=== PATIENT | male | born 1990 | race Caucasian/White ===

== ENCOUNTER 2023-07-21 13:18 | Emergency (ER) | payer OTHER, SELFPAY ==
[~2023-07-21] VITALS: Ht 185.4 cm; Wt 172.7 kg
--- NOTE | 2023-07-21 14:18 | NUR ---
PT ARRIVED TO . [facility] AT BEDSIDE.
--- NOTE | 2023-07-21 14:25 | NUR ---
LAB AT BEDSIDE COLLECTING PT BLOOD.
[2023-07-21 14:52] LABS: BASOPHILS # (AUTO) 0.1 X10'3 (0-0.2); BASOPHILS % (AUTO) 0.8 % (0-1); EOSINOPHILS # (AUTO) 0.2 X10'3 (0-0.9); EOSINOPHILS % (AUTO) 3.2 % (0-6); HEMATOCRIT 42.1 % (42.0-52.0); HEMOGLOBIN 14.4 g/dl (14.0-17.9); LYMPHOCYTES # (AUTO) 1.5 X10'3 (1.1-4.8); LYMPHOCYTES % (AUTO) 21.8 % (21-51); MEAN CORPUSCULAR HEMOGLOBIN 27.9 PG (27.0-31.0); MEAN CORPUSCULAR HGB CONC 34.2 g/dL (33.0-36.5); MEAN CORPUSCULAR VOLUME 81.7 FL (78-98); MEAN PLATELET VOLUME 9.2 FL (7.4-10.4); MONOCYTES # (AUTO) 0.4 X10'3 (0-0.9); MONOCYTES % (AUTO) 5.9 % (2-12); NEUTROPHILS # (AUTO) 4.8 X10'3 (1.8-7.7); NEUTROPHILS % (AUTO) 68.3 % (42-75); PLATELET COUNT 221 X10'3 (140-440); RED BLOOD COUNT 5.16 X10'6 (4.70-6.10); RED CELL DISTRIBUTION WIDTH 14.5 % (11.5-14.5)
--- NOTE | 2023-07-21 14:54 | NUR ---
STUDENT STEVAN SERRANO AT BEDSIDE WITH HIS INSTRUCTOR ATTEMPTING IV AT THIS TIME.
[2023-07-21 15:07] LABS: ALBUMIN 3.7 G/DL (3.4-5.0); ALBUMIN/GLOBULIN RATIO 0.9 (1.1-1.5); ALKALINE PHOSPHATASE 76 IU/L (46-116); ANION GAP 8 (8-16); BILIRUBIN,TOTAL 1.1 MG/DL (0.1-1.0); BLOOD UREA NITROGEN 11 MG/DL (7-18); BUN/CREATININE RATIO 10.5 (10.0-20.0); CHLORIDE 98 MMOL/L (99-107); CREATININE 1.05 MG/DL (0.60-1.10); PRO BRAIN NATRIURETIC PEPTIDE < 30 PG/ML (0-125); SODIUM 132 MMOL/L (135-145); TOTAL CARBON DIOXIDE 25.6 MMOL/L (24-32); TOTAL PROTEIN 7.6 G/DL (6.4-8.2); eCRCL 111 ML/MIN; eGFR 80 ML/MIN
[2023-07-21 15:14] LABS: POTASSIUM 3.9 MMOL/L (3.5-5.1)
[2023-07-21] MEDS ORDERED: normal saline 1000ml 1,000 ML IV ONE (15:20)
--- NOTE | 2023-07-21 15:20 | NUR ---
PER LAB PT BG [id number]. RN NOTIFIED DR BAEZ.
[2023-07-21] MEDS ORDERED: iohexol 350MG/ML 100ml bottle IV ONE (15:27)
[2023-07-21 15:28] LABS: ALANINE AMINOTRANSFERASE 119 U/L (12-78); ASPARTATE AMINO TRANSFERASE 47 U/L (10-37)
[2023-07-21 15:30] LABS: GLUCOSE 471 MG/DL (70-104)
--- NOTE | 2023-07-21 15:44 | NUR ---
CT NOTIFIED THAT PT READY FOR CT WITH CONTRAST.
[2023-07-21] MEDS ORDERED: potassium chloride 10mEq ER tablet PO ONE (16:25)
[2023-07-21] MEDS ORDERED: insulin regular, human 10 units/0.1 ml syringe IV ONE (16:25)
[2023-07-21 16:38] LABS: BILIRUBIN,URINE NEGATIVE (Neg); CLARITY,URINE CLEAR (Clear); COLOR,URINE YELLOW (Yellow); GLUCOSE, URINE >=1000 mg/dl (Neg); KETONES,URINE 15 mg/dl (Neg); LEUKOCYTE ESTERASE ,URINE NEGATIVE (Neg); NITRITES, URINE NEGATIVE (Neg); OCCULT BLOOD,URINE NEGATIVE (Neg); PH,URINE 5.5 (4.8-8.0); PROTEIN,URINE NEGATIVE (Neg); UROBILINOGEN,URINE 0.2 E.U/dL (0.2-1.0)
[2023-07-21 16:42] LABS: UA COLLECTION TYPE CLN CATCH MIDSTREAM
[2023-07-21 16:48] LABS: BACTERIA,URINE NONE SEEN /HPF (Neg); RBC,URINE NONE SEEN /HPF (0-2); SQUAMOUS EPITHELIAL CELL,UR NONE SEEN /LPF (FEW)
[2023-07-21 16:49] LABS: WBC,URINE 0-4 /HPF (0-4)
[2023-07-21 17:29] VITALS: TEMP 98.5
[2023-07-21] MEDS ORDERED: METF-436 PO (18:21)
--- NOTE | 2023-07-21 18:30 | NUR ---
SHANIA CALLES WILL COMPLETE DISCHARGE. MAGGIE CALLES STUDENT REMOVED IVS/TIPS INTACT WITH NO COMPLICATION.
[2023-07-21 18:31] VITALS: BP 152/99; PULSE 95; RESP 16; O2SAT 97
== END 2023-07-21 18:33 | disposition home or self-care (01) ==
LOC: ER 13:19
DX: E11.65 Type 2 diabetes mellitus with hyperglycemia (principal); K76.0 Fatty (change of) liver, not elsewhere classified
CPT/HCPCS: 36415; 71045; 71275; 74177; 80053; 81001; 82948; 83880; 85025; 93005; 96374; 99285; J1815; J3490; J7030; Q9967

== ENCOUNTER 2023-07-25 16:17 | Emergency (ER) | payer OTHER ==
[~2023-07-25] VITALS: Ht 185.4 cm; Wt 170.0 kg
[~2023-07-25 16:17] MED LIST: METF-436 PO
[2023-07-25] MEDS ORDERED: ipratropium/albuterol 3ml nebule NEB ONE (17:00)
[2023-07-25] MEDS ORDERED: normal saline 1000ML IV soln IVB ONE (17:00)
[2023-07-25] MEDS ORDERED: methylPREDNISolone sod succ 125mg/2ml vial IV ONE (17:00)
[2023-07-25 18:15] VITALS: TEMP 98.5
[2023-07-25 18:32] LABS: BASOPHILS % (AUTO) 0.4 % (0-1); EOSINOPHILS # (AUTO) 0.3 X10'3 (0-0.9); HEMATOCRIT 39.3 % (42.0-52.0); HEMOGLOBIN 13.7 g/dl (14.0-17.9); LYMPHOCYTES # (AUTO) 1.2 X10'3 (1.1-4.8); LYMPHOCYTES % (AUTO) 18.7 % (21-51); MEAN CORPUSCULAR HEMOGLOBIN 28.4 PG (27.0-31.0); MEAN CORPUSCULAR VOLUME 81.1 FL (78-98); MEAN PLATELET VOLUME 8.8 FL (7.4-10.4); MONOCYTES # (AUTO) 0.4 X10'3 (0-0.9); NEUTROPHILS # (AUTO) 4.3 X10'3 (1.8-7.7); NEUTROPHILS % (AUTO) 69.9 % (42-75); PLATELET COUNT 249 X10'3 (140-440); RED BLOOD COUNT 4.84 X10'6 (4.70-6.10); RED CELL DISTRIBUTION WIDTH 14.7 % (11.5-14.5); WHITE BLOOD COUNT 6.2 X10'3 (4.5-11.0)
[2023-07-25 19:15] VITALS: BP 119/74; PULSE 106; RESP 14; O2SAT 96
== END 2023-07-25 19:17 | disposition home or self-care (01) ==
LOC: ER 16:19
DX: J45.909 Unspecified asthma, uncomplicated (principal); E11.9 Type 2 diabetes mellitus without complications; F41.9 Anxiety disorder, unspecified; F12.90 Cannabis use, unspecified, uncomplicated; Z79.84 Long term (current) use of oral hypoglycemic drugs; Z79.899 Other long term (current) drug therapy
CPT/HCPCS: 36415; 71045; 85025; 93005; 99285

== ENCOUNTER 2023-09-03 10:25 | Emergency (ER) | payer SELFPAY ==
[~2023-09-03] VITALS: Ht 185.4 cm; Wt 172.7 kg
[2023-09-03 10:35] VITALS: BP 204/104; PULSE 102; RESP 16; TEMP 98.8; O2SAT 97
[2023-09-03 11:49] LABS: BASOPHILS % (AUTO) 0.4 % (0-1); EOSINOPHILS # (AUTO) 0.3 X10'3 (0-0.9); EOSINOPHILS % (AUTO) 5.2 % (0-6); HEMATOCRIT 41.9 % (42.0-52.0); HEMOGLOBIN 13.9 g/dl (14.0-17.9); LYMPHOCYTES # (AUTO) 1.2 X10'3 (1.1-4.8); LYMPHOCYTES % (AUTO) 21.6 % (21-51); MEAN CORPUSCULAR HEMOGLOBIN 27.2 PG (27.0-31.0); MEAN CORPUSCULAR HGB CONC 33.2 g/dL (33.0-36.5); MEAN CORPUSCULAR VOLUME 81.8 FL (78-98); MEAN PLATELET VOLUME 8.4 FL (7.4-10.4); MONOCYTES # (AUTO) 0.3 X10'3 (0-0.9); MONOCYTES % (AUTO) 5.7 % (2-12); NEUTROPHILS # (AUTO) 3.8 X10'3 (1.8-7.7); NEUTROPHILS % (AUTO) 67.1 % (42-75); PLATELET COUNT 258 X10'3 (140-440); RED BLOOD COUNT 5.12 X10'6 (4.70-6.10); RED CELL DISTRIBUTION WIDTH 14.4 % (11.5-14.5); WHITE BLOOD COUNT 5.6 X10'3 (4.5-11.0)
[2023-09-03 12:12] LABS: ALANINE AMINOTRANSFERASE 102 U/L (12-78); ALBUMIN 3.6 G/DL (3.4-5.0); ALBUMIN/GLOBULIN RATIO 0.9 (1.1-1.5); ALKALINE PHOSPHATASE 59 IU/L (46-116); ANION GAP 9 (8-16); ASPARTATE AMINO TRANSFERASE 32 U/L (10-37); BILIRUBIN,TOTAL 0.8 MG/DL (0.1-1.0); BLOOD UREA NITROGEN 8 MG/DL (7-18); BUN/CREATININE RATIO 11.8 (10.0-20.0); CHLORIDE 104 MMOL/L (99-107); CREATININE 0.68 MG/DL (0.60-1.10); GLUCOSE 152 MG/DL (70-104); POTASSIUM 3.9 MMOL/L (3.5-5.1); SODIUM 138 MMOL/L (135-145); TOTAL CARBON DIOXIDE 24.7 MMOL/L (24-32); TOTAL PROTEIN 7.5 G/DL (6.4-8.2); eCRCL 171 ML/MIN; eGFR > 90 ML/MIN
[2023-09-03 12:13] LABS: PRO BRAIN NATRIURETIC PEPTIDE 99 PG/ML (0-125)
[2023-09-03 15:01] LABS: D-DIMER 0.61 MG/L FEU (0-0.50)
== END 2023-09-03 17:37 | disposition left against medical advice (07) ==
LOC: ER 10:26
DX: R20.2 Paresthesia of skin (principal); Z53.21 Procedure and treatment not carried out due to patient leaving prior to being seen by health care provider
CPT/HCPCS: 36415; 71045; 80053; 83880; 84484; 85025; 85379; 93005; 99281

== ENCOUNTER 2023-10-22 07:10 | Emergency (ER) | payer BC ==
[~2023-10-22] VITALS: Ht 185.4 cm; Wt 179.0 kg
[2023-10-22] MEDS: insulin regular, human 10 units/0.1 ml syringe SQ ONE (08:51)
[2023-10-22] MEDS: normal saline 1000ML IV soln IVB ONE (09:08)
[2023-10-22 09:24] VITALS: PULSE 87; RESP 16; O2SAT 96
[2023-10-22 09:28] LABS: BASOPHILS # (AUTO) 0.1 X10'3 (0-0.2); BASOPHILS % (AUTO) 1.5 % (0-1); EOSINOPHILS # (AUTO) 0.2 X10'3 (0-0.9); EOSINOPHILS % (AUTO) 4.3 % (0-6); HEMATOCRIT 44.5 % (42.0-52.0); HEMOGLOBIN 14.9 g/dl (14.0-17.9); LYMPHOCYTES # (AUTO) 1.3 X10'3 (1.1-4.8); MEAN CORPUSCULAR HGB CONC 33.5 g/dL (33.0-36.5); MEAN CORPUSCULAR VOLUME 80.7 FL (78-98); MEAN PLATELET VOLUME 9.2 FL (7.4-10.4); MONOCYTES # (AUTO) 0.3 X10'3 (0-0.9); MONOCYTES % (AUTO) 5.3 % (2-12); NEUTROPHILS # (AUTO) 3.4 X10'3 (1.8-7.7); NEUTROPHILS % (AUTO) 63.9 % (42-75); PLATELET COUNT 243 X10'3 (140-440); RED BLOOD COUNT 5.52 X10'6 (4.70-6.10); RED CELL DISTRIBUTION WIDTH 14.1 % (11.5-14.5); WHITE BLOOD COUNT 5.3 X10'3 (4.5-11.0)
[2023-10-22 09:35] LABS: ALBUMIN 3.8 G/DL (3.4-5.0); BLOOD UREA NITROGEN 11 MG/DL (7-18); BUN/CREATININE RATIO 15.5 (10.0-20.0); CALCIUM 9.2 MG/DL (8.5-10.1); CREATININE 0.71 MG/DL (0.60-1.10); GLUCOSE 393 MG/DL (70-104); POTASSIUM 4.2 MMOL/L (3.5-5.1); SODIUM 134 MMOL/L (135-145); eCRCL 164 ML/MIN; eGFR > 90 ML/MIN
[2023-10-22 09:58] LABS: ANION GAP 11 (8-16); CHLORIDE 97 MMOL/L (99-107)
[2023-10-22] MEDS ORDERED: iohexol 300mg/ml 100ml inj. ONE (10:40)
[2023-10-22 11:24] VITALS: BP 132/88
[2023-10-22] MEDS ORDERED: METF-1203 PO (12:40)
[2023-10-22 13:20] VITALS: TEMP 97.8
== END 2023-10-22 13:22 | disposition home or self-care (01) ==
LOC: ER 07:11
DX: I10 Essential (primary) hypertension (principal); F41.9 Anxiety disorder, unspecified; R05.9 Cough, unspecified; J45.909 Unspecified asthma, uncomplicated; E11.9 Type 2 diabetes mellitus without complications; M19.90 Unspecified osteoarthritis, unspecified site; F12.90 Cannabis use, unspecified, uncomplicated; Z79.899 Other long term (current) drug therapy; Z87.891 Personal history of nicotine dependence
CPT/HCPCS: 36415; 71045; 74160; 80048; 82948; 84484; 85025; 93005; 96360; 96372; 99285; J1815; J3490; J7030; Q9967

== ENCOUNTER 2023-12-06 16:46 | Emergency (ER) | payer BC ==
[~2023-12-06] VITALS: Ht 185.4 cm; Wt 170.8 kg
[2023-12-06 17:07] VITALS: BP 190/112; PULSE 98; RESP 16; TEMP 98.6; O2SAT 97
[2023-12-06 17:35] LABS: BASOPHILS # (AUTO) 0.1 X10'3 (0-0.2); BASOPHILS % (AUTO) 0.8 % (0-1); EOSINOPHILS # (AUTO) 0.3 X10'3 (0-0.9); EOSINOPHILS % (AUTO) 3.9 % (0-6); HEMATOCRIT 42.1 % (42.0-52.0); LYMPHOCYTES # (AUTO) 1.7 X10'3 (1.1-4.8); LYMPHOCYTES % (AUTO) 26.1 % (21-51); MEAN CORPUSCULAR HEMOGLOBIN 27.7 PG (27.0-31.0); MEAN CORPUSCULAR HGB CONC 33.3 g/dL (33.0-36.5); MEAN CORPUSCULAR VOLUME 82.9 FL (78-98); MEAN PLATELET VOLUME 9.1 FL (7.4-10.4); MONOCYTES # (AUTO) 0.4 X10'3 (0-0.9); MONOCYTES % (AUTO) 5.5 % (2-12); NEUTROPHILS # (AUTO) 4.2 X10'3 (1.8-7.7); NEUTROPHILS % (AUTO) 63.7 % (42-75); PLATELET COUNT 239 X10'3 (140-440); RED BLOOD COUNT 5.08 X10'6 (4.70-6.10); RED CELL DISTRIBUTION WIDTH 14.4 % (11.5-14.5); WHITE BLOOD COUNT 6.6 X10'3 (4.5-11.0)
[2023-12-06 17:54] LABS: ALBUMIN 3.6 G/DL (3.4-5.0); ANION GAP 12 (8-16); BLOOD UREA NITROGEN 13 MG/DL (7-18); BUN/CREATININE RATIO 15.7 (10.0-20.0); CALCIUM 8.9 MG/DL (8.5-10.1); CHLORIDE 104 MMOL/L (99-107); CREATININE 0.83 MG/DL (0.60-1.10); GLUCOSE 107 MG/DL (70-104); POTASSIUM 4.1 MMOL/L (3.5-5.1); PRO BRAIN NATRIURETIC PEPTIDE 191 PG/ML (0-125); SODIUM 141 MMOL/L (135-145); TOTAL CARBON DIOXIDE 25.5 MMOL/L (24-32); eCRCL 140 ML/MIN; eGFR > 90 ML/MIN
== END 2023-12-06 20:15 | disposition left against medical advice (07) ==
LOC: ER 16:47
DX: R07.89 Other chest pain (principal); Z53.21 Procedure and treatment not carried out due to patient leaving prior to being seen by health care provider
CPT/HCPCS: 36415; 71045; 80048; 83880; 84484; 85025; 93005; 99281

== ENCOUNTER 2024-02-18 08:30 | Outpatient (CLI) | payer BC | END 2024-02-18 23:59 | disposition home or self-care (01) | LOC: RAD 08:30 | PROVIDERS: ATTEND Nurse Practitioner | DX: R16.1 Splenomegaly, not elsewhere classified (principal); R91.1 Solitary pulmonary nodule; R10.12 Left upper quadrant pain | CPT/HCPCS: 76705 ==